=== PATIENT | female | born 1960 | race Caucasian/White ===

== ENCOUNTER 2016-11-14 15:06 | Inpatient (IN) | payer OTHER ==
[2016-11-14] VITALS (8 sets, daily range): BP systolic 92–146; BP diastolic 61–76
[~2016-11-14] VITALS: Ht 157.5 cm; Wt 75.5 kg
[2016-11-14 16:23] LABS: CALCIUM 8.9 mg/dL (8.5-10.1); CARBON DIOXIDE 38.4 mmol/L (21-32); CHLORIDE SERUM 101 mmol/L (98-107); CREATININE SERUM 0.8 mg/dL (0.6-1.0); GFR1 > 60 mL/min; GLUCOSE SERUM 169 mg/dL (74-106); POTASSIUM SERUM 5.3 mmol/L (3.5-5.1); SODIUM SERUM 141 mmol/L (136-145)
[2016-11-14 16:29] LABS: ALBUMIN 3.9 g/dL (3.4-5.0); ALKALINE PHOSPHATASE 64 U/L (46-116); ALT/SGPT 21 U/L (14-59); AST/SGOT 19 U/L (15-37); BILIRUBIN TOTAL 0.55 mg/dL (0.20-1.00); MAGNESIUM 2.1 mg/dL (1.8-2.4); TOTAL PROTEIN, SERUM 6.9 g/dL (6.4-8.2)
[2016-11-14 16:32] LABS: PLATELET COUNT 145 x10^3mcL (130-400)
[2016-11-14 16:33] LABS: BASOPHIL % 0 % (0-2); RED CELL DISTRIBUTION WIDTH 22.8 % (11.5-14.5)
[2016-11-14 16:35] LABS: rbc morphology (normal/abnorm) ABNORMAL (NORMAL)
[2016-11-14 16:53] LABS: microscopic required? NO
[2016-11-14 17:10] LABS: UA SPECIFIC GRAVITY 1.025 (1.005-1.035); urine erythrocyte NEGATIVE (NEGATIVE)
[2016-11-14 17:18] LABS: AMPHETAMINE QUAL UR NONE DETECTED (NEG <=1000)
[2016-11-14] MEDS ORDERED: VIAGRA50 MG PO (17:59)
[2016-11-14] MEDS ORDERED: CARVEDILOL6.25 M1 PO (17:59)
[2016-11-14] MEDS ORDERED: SIMVASTATIN40 M1 PO (17:59)
[2016-11-14] MEDS ORDERED: METFORMIN HCL1000 MG PO (18:00)
[2016-11-14] MEDS ORDERED: CITALOPRAM HYDR20 M1 PO (18:00)
[2016-11-14] MEDS ORDERED: ZESTRIL40 MG PO (18:00)
[2016-11-14] MEDS ORDERED: LASIX40 MG PO (18:02)
[2016-11-14] MEDS ORDERED: GLIPIZIDE10 M2 PO (18:02)
[2016-11-14] MEDS ORDERED: TRAMADOL HCL50 MG PO (18:02)
[2016-11-14 18:27] LABS: CHOLESTEROL/HDL RATIO 3.3; PHOSPHOROUS 6.4 mg/dL (2.5-4.9)
[2016-11-14 18:35] LABS: T3 TOTAL 1.04 ng/mL
[2016-11-14 18:36] LABS: FREE T4 1.02 ng/dL (0.76-1.46); FREE THYROXINE INDEX 3.1 ug/dL (1.4-4.5); T4(THYROXINE) 8.9 ug/dL (4.7-13.3)
[2016-11-15] VITALS (17 sets, daily range): BP systolic 105–181; BP diastolic 54–98
[2016-11-15 05:06] LABS: BASOPHIL % 0.3 % (0-2)
[2016-11-15 05:17] LABS: CALCIUM 8.7 mg/dL (8.5-10.1); CARBON DIOXIDE 35.7 mmol/L (21-32); CHLORIDE SERUM 104 mmol/L (98-107); CREATININE SERUM 0.7 mg/dL (0.6-1.0); GFR1 > 60 mL/min; MAGNESIUM 1.7 mg/dL (1.8-2.4); PHOSPHOROUS 2.8 mg/dL (2.5-4.9); POTASSIUM SERUM 3.8 mmol/L (3.5-5.1); SODIUM SERUM 144 mmol/L (136-145)
[2016-11-15 05:19] LABS: GLUCOSE SERUM 52 mg/dL (74-106)
[2016-11-15 05:50] LABS: PLATELET COUNT 127 x10^3mcL (130-400); RED CELL DISTRIBUTION WIDTH 22.2 % (11.5-14.5)
[2016-11-15 05:57] LABS: rbc morphology (normal/abnorm) ABNORMAL (NORMAL)
[2016-11-16] VITALS (17 sets, daily range): BP systolic 100–164; BP diastolic 51–80
[2016-11-16 06:24] LABS: CALCIUM 8.8 mg/dL (8.5-10.1); CARBON DIOXIDE 32.4 mmol/L (21-32); CHLORIDE SERUM 102 mmol/L (98-107); CREATININE SERUM 0.7 mg/dL (0.6-1.0); GFR1 > 60 mL/min; GLUCOSE SERUM 236 mg/dL (74-106); MAGNESIUM 2.1 mg/dL (1.8-2.4); PHOSPHOROUS 4.4 mg/dL (2.5-4.9); POTASSIUM SERUM 3.4 mmol/L (3.5-5.1); SODIUM SERUM 140 mmol/L (136-145)
[2016-11-16 06:36] LABS: BASOPHIL % 0 % (0-2); PLATELET COUNT 109 x10^3mcL (130-400); RED CELL DISTRIBUTION WIDTH 22.5 % (11.5-14.5)
[2016-11-16 10:40] LABS: rbc morphology (normal/abnorm) ABNORMAL (NORMAL)
[2016-11-16 10:41] LABS: ovalocyte/elliptocyte 1+; target cell (codocyte) 1+
[2016-11-17] VITALS (18 sets, daily range): BP systolic 100–177; BP diastolic 51–97
[2016-11-17 05:35] LABS: BASOPHIL % 0.8 % (0-2)
[2016-11-17 05:39] LABS: PLATELET COUNT 109 x10^3mcL (130-400); RED CELL DISTRIBUTION WIDTH 23.1 % (11.5-14.5)
[2016-11-17 05:42] LABS: CALCIUM 8.7 mg/dL (8.5-10.1); CARBON DIOXIDE 31.2 mmol/L (21-32); CHLORIDE SERUM 97 mmol/L (98-107); CREATININE SERUM 0.7 mg/dL (0.6-1.0); GFR1 > 60 mL/min; GLUCOSE SERUM 186 mg/dL (74-106); MAGNESIUM 2.2 mg/dL (1.8-2.4); PHOSPHOROUS 4.2 mg/dL (2.5-4.9); SODIUM SERUM 137 mmol/L (136-145)
[2016-11-18] VITALS (18 sets, daily range): BP systolic 94–182; BP diastolic 47–94
[2016-11-18 05:44] LABS: PLATELET COUNT 145 x10^3mcL (130-400)
[2016-11-18 05:52] LABS: RED CELL DISTRIBUTION WIDTH 22.3 % (11.5-14.5)
[2016-11-18 05:56] LABS: CALCIUM 8.5 mg/dL (8.5-10.1); CARBON DIOXIDE 32.6 mmol/L (21-32); CHLORIDE SERUM 103 mmol/L (98-107); CREATININE SERUM 0.6 mg/dL (0.6-1.0); GFR1 > 60 mL/min; GLUCOSE SERUM 129 mg/dL (74-106); MAGNESIUM 1.9 mg/dL (1.8-2.4); PHOSPHOROUS 4.9 mg/dL (2.5-4.9); SODIUM SERUM 140 mmol/L (136-145)
[2016-11-19] VITALS (18 sets, daily range): BP systolic 96–169; BP diastolic 51–95
[2016-11-19 04:55] LABS: BASOPHIL % 1.5 % (0-2)
[2016-11-19 05:06] LABS: CALCIUM 8.8 mg/dL (8.5-10.1); CARBON DIOXIDE 35.6 mmol/L (21-32); CHLORIDE SERUM 102 mmol/L (98-107); CREATININE SERUM 0.6 mg/dL (0.6-1.0); GFR1 > 60 mL/min; GLUCOSE SERUM 156 mg/dL (74-106); MAGNESIUM 1.7 mg/dL (1.8-2.4); PHOSPHOROUS 2.9 mg/dL (2.5-4.9); PLATELET COUNT 115 x10^3mcL (130-400); POTASSIUM SERUM 3.5 mmol/L (3.5-5.1); SODIUM SERUM 142 mmol/L (136-145)
[2016-11-19 05:22] LABS: ovalocyte/elliptocyte 1+; rbc morphology (normal/abnorm) ABNORMAL (NORMAL)
[2016-11-20] VITALS (17 sets, daily range): BP systolic 102–144; BP diastolic 54–75
[2016-11-20 06:06] LABS: CALCIUM 8.6 mg/dL (8.5-10.1); CARBON DIOXIDE 33.8 mmol/L (21-32); CHLORIDE SERUM 102 mmol/L (98-107); CREATININE SERUM 0.6 mg/dL (0.6-1.0); GFR1 > 60 mL/min; GLUCOSE SERUM 178 mg/dL (74-106); MAGNESIUM 1.8 mg/dL (1.8-2.4); PHOSPHOROUS 3.7 mg/dL (2.5-4.9); POTASSIUM SERUM 3.1 mmol/L (3.5-5.1); SODIUM SERUM 140 mmol/L (136-145)
[2016-11-20 06:07] LABS: BASOPHIL % 0 % (0-2); PLATELET COUNT 117 x10^3mcL (130-400); RED CELL DISTRIBUTION WIDTH 23.4 % (11.5-14.5)
[2016-11-21] VITALS (19 sets, daily range): BP systolic 90–151; BP diastolic 47–75
[2016-11-21 04:52] LABS: BASOPHIL % 0.1 % (0-2); PLATELET COUNT 156 x10^3mcL (130-400)
[2016-11-21 05:00] LABS: RED CELL DISTRIBUTION WIDTH 23.2 % (11.5-14.5)
[2016-11-21 05:18] LABS: CALCIUM 8.8 mg/dL (8.5-10.1); CARBON DIOXIDE 31.8 mmol/L (21-32); CHLORIDE SERUM 102 mmol/L (98-107); CREATININE SERUM 0.6 mg/dL (0.6-1.0); GFR1 > 60 mL/min; GLUCOSE SERUM 161 mg/dL (74-106); MAGNESIUM 1.9 mg/dL (1.8-2.4); PHOSPHOROUS 3.9 mg/dL (2.5-4.9); POTASSIUM SERUM 3.5 mmol/L (3.5-5.1); SODIUM SERUM 138 mmol/L (136-145)
[2016-11-21 05:20] LABS: rbc morphology (normal/abnorm) ABNORMAL (NORMAL)
[2016-11-21 05:21] LABS: ovalocyte/elliptocyte 1+
[2016-11-22] VITALS (19 sets, daily range): BP systolic 82–151; BP diastolic 55–84
[2016-11-22 05:42] LABS: BASOPHIL % 0.3 % (0-2); PLATELET COUNT 172 x10^3mcL (130-400)
[2016-11-22 05:51] LABS: CALCIUM 9.1 mg/dL (8.5-10.1); CARBON DIOXIDE 32.7 mmol/L (21-32); CHLORIDE SERUM 103 mmol/L (98-107); CREATININE SERUM 0.6 mg/dL (0.6-1.0); GFR1 > 60 mL/min; GLUCOSE SERUM 190 mg/dL (74-106); MAGNESIUM 1.9 mg/dL (1.8-2.4); PHOSPHOROUS 3.7 mg/dL (2.5-4.9); POTASSIUM SERUM 3.5 mmol/L (3.5-5.1); SODIUM SERUM 141 mmol/L (136-145)
[2016-11-23] VITALS (14 sets, daily range): BP systolic 93–168; BP diastolic 42–84
[2016-11-23 05:55] LABS: BASOPHIL % 0.9 % (0-2); PLATELET COUNT 181 x10^3mcL (130-400)
[2016-11-23 05:57] LABS: CALCIUM 9.1 mg/dL (8.5-10.1); CARBON DIOXIDE 29.3 mmol/L (21-32); CHLORIDE SERUM 105 mmol/L (98-107); CREATININE SERUM 0.5 mg/dL (0.6-1.0); GFR1 > 60 mL/min; GLUCOSE SERUM 151 mg/dL (74-106); MAGNESIUM 1.8 mg/dL (1.8-2.4); PHOSPHOROUS 3.7 mg/dL (2.5-4.9); POTASSIUM SERUM 3.2 mmol/L (3.5-5.1); SODIUM SERUM 143 mmol/L (136-145)
[2016-11-24] VITALS (16 sets, daily range): BP systolic 121–161; BP diastolic 69–79
[2016-11-24 05:22] LABS: CALCIUM 9.4 mg/dL (8.5-10.1); CARBON DIOXIDE 28.5 mmol/L (21-32); CHLORIDE SERUM 106 mmol/L (98-107); CREATININE SERUM 0.6 mg/dL (0.6-1.0); GFR1 > 60 mL/min; GLUCOSE SERUM 168 mg/dL (74-106); MAGNESIUM 1.7 mg/dL (1.8-2.4); PHOSPHOROUS 4.1 mg/dL (2.5-4.9); POTASSIUM SERUM 3.3 mmol/L (3.5-5.1); SODIUM SERUM 142 mmol/L (136-145)
[2016-11-24 05:31] LABS: BASOPHIL % 0.7 % (0-2); PLATELET COUNT 197 x10^3mcL (130-400); RED CELL DISTRIBUTION WIDTH 22.9 % (11.5-14.5)
[2016-11-25] VITALS (16 sets, daily range): BP systolic 108–176; BP diastolic 59–99
[2016-11-25 05:31] LABS: BASOPHIL % 1.8 % (0-2); PLATELET COUNT 195 x10^3mcL (130-400); RED CELL DISTRIBUTION WIDTH 23.6 % (11.5-14.5)
[2016-11-25 05:43] LABS: CALCIUM 9.7 mg/dL (8.5-10.1); CHLORIDE SERUM 106 mmol/L (98-107); CREATININE SERUM 0.5 mg/dL (0.6-1.0); GFR1 > 60 mL/min; GLUCOSE SERUM 180 mg/dL (74-106); MAGNESIUM 1.5 mg/dL (1.8-2.4); PHOSPHOROUS 4.3 mg/dL (2.5-4.9); POTASSIUM SERUM 3.3 mmol/L (3.5-5.1); SODIUM SERUM 144 mmol/L (136-145)
[2016-11-26] VITALS (13 sets, daily range): BP systolic 123–178; BP diastolic 63–99
[2016-11-26 05:34] LABS: BASOPHIL % 1.2 % (0-2); PLATELET COUNT 193 x10^3mcL (130-400)
[2016-11-26 05:39] LABS: RED CELL DISTRIBUTION WIDTH 23.4 % (11.5-14.5)
[2016-11-26 05:47] LABS: CALCIUM 9.6 mg/dL (8.5-10.1); CARBON DIOXIDE 25.3 mmol/L (21-32); CHLORIDE SERUM 106 mmol/L (98-107); CREATININE SERUM 0.6 mg/dL (0.6-1.0); GFR1 > 60 mL/min; GLUCOSE SERUM 126 mg/dL (74-106); MAGNESIUM 1.6 mg/dL (1.8-2.4); PHOSPHOROUS 3.8 mg/dL (2.5-4.9); SODIUM SERUM 143 mmol/L (136-145)
[2016-11-26 06:11] LABS: rbc morphology (normal/abnorm) ABNORMAL (NORMAL)
[2016-11-26 06:12] LABS: ovalocyte/elliptocyte 1+
[2016-11-27] VITALS (8 sets, daily range): BP systolic 122–151; BP diastolic 57–82; Ht 157.5 cm; Wt 75.5 kg
[2016-11-27 05:40] LABS: PLATELET COUNT 224 x10^3mcL (130-400)
[2016-11-27 05:43] LABS: BASOPHIL % 0 % (0-2); RED CELL DISTRIBUTION WIDTH 22.8 % (11.5-14.5)
[2016-11-27 05:50] LABS: CALCIUM 9.9 mg/dL (8.5-10.1); CARBON DIOXIDE 29.8 mmol/L (21-32); CHLORIDE SERUM 106 mmol/L (98-107); CREATININE SERUM 0.6 mg/dL (0.6-1.0); GFR1 > 60 mL/min; GLUCOSE SERUM 131 mg/dL (74-106); MAGNESIUM 1.9 mg/dL (1.8-2.4); PHOSPHOROUS 5.2 mg/dL (2.5-4.9); POTASSIUM SERUM 3.7 mmol/L (3.5-5.1); SODIUM SERUM 144 mmol/L (136-145)
[2016-11-28 06:08] VITALS: BP 119/65
[2016-11-28 06:37] LABS: BASOPHIL % 0.8 % (0-2); PLATELET COUNT 206 x10^3mcL (130-400)
[2016-11-28 07:20] LABS: CALCIUM 9.9 mg/dL (8.5-10.1); CARBON DIOXIDE 30.3 mmol/L (21-32); CHLORIDE SERUM 103 mmol/L (98-107); CREATININE SERUM 0.6 mg/dL (0.6-1.0); GFR1 > 60 mL/min; GLUCOSE SERUM 123 mg/dL (74-106); MAGNESIUM 1.6 mg/dL (1.8-2.4); PHOSPHOROUS 5.5 mg/dL (2.5-4.9); POTASSIUM SERUM 3.2 mmol/L (3.5-5.1); SODIUM SERUM 142 mmol/L (136-145)
[2016-11-28 07:49] LABS: RED CELL DISTRIBUTION WIDTH 23.5 % (11.5-14.5)
[2016-11-28 09:33] VITALS: BP 116/44
[2016-11-28 18:17] VITALS: BP 109/58
[2016-11-28 21:41] VITALS: BP 125/55
[2016-11-29 05:51] VITALS: BP 107/54
[2016-11-29 07:27] LABS: CALCIUM 9.9 mg/dL (8.5-10.1); CARBON DIOXIDE 27.5 mmol/L (21-32); CHLORIDE SERUM 101 mmol/L (98-107); CREATININE SERUM 0.8 mg/dL (0.6-1.0); GFR1 > 60 mL/min; GLUCOSE SERUM 154 mg/dL (74-106); MAGNESIUM 1.4 mg/dL (1.8-2.4); POTASSIUM SERUM 3.5 mmol/L (3.5-5.1); SODIUM SERUM 140 mmol/L (136-145)
[2016-11-29 10:00] VITALS: BP 113/59
[2016-11-29 14:00] VITALS: BP 137/60
[2016-11-29 14:36] VITALS: BP 113/59
[2016-11-29 16:22] VITALS: BP 113/59
[2016-11-29] MEDS ORDERED: ASPIR 8181 MG PO (17:51)
[2016-11-29] MEDS ORDERED: REGLAN10 M1 PO (17:52)
[2016-11-29] MEDS ORDERED: PULMICORT0.5 MG/2 M IH (17:54)
[2016-11-29] MEDS ORDERED: IPRATROPIUM BROM3 M2 HHN (17:55)
[2016-11-29] MEDS ORDERED: PANTOPRAZOLE SO40 M1 PO (17:56)
[2016-11-29] MEDS ORDERED: ARTOS OD (17:56)
[2016-11-29] MEDS ORDERED: HUMULIN R100 U/1 M1 SC (17:57)
[2016-11-29 18:40] VITALS: BP 109/62
== END 2016-11-29 19:50 | DRG 207 ==
LOC: ED 15:06 → DU 17:15 → IC 17:15 → DU 11-27 18:12 → IC 11-27 18:19 → DU 11-27 18:21
PROVIDERS: Emergency Medicine; Family Medicine; ADMIT Family Medicine
PROC: 5A1955Z Respiratory Ventilation, Greater than 96 Consecutive Hours (ICD-10-PCS; principal; 2016-11-14)
PROC: 0BH17EZ Insertion of Endotracheal Airway into Trachea, Via Natural or Artificial Opening (ICD-10-PCS; 2016-11-14)
PROC: 05HN33Z Insertion of Infusion Device into Left Internal Jugular Vein, Percutaneous Approach (ICD-10-PCS; 2016-11-14)
PROC: B544ZZA Ultrasonography of Left Jugular Veins, Guidance (ICD-10-PCS; 2016-11-14)
PROC: 0B21XEZ Change Endotracheal Airway in Trachea, External Approach (ICD-10-PCS; 2016-11-18)
DX: J96.00 Acute respiratory failure, unspecified whether with hypoxia or hypercapnia (principal); J69.0 Pneumonitis due to inhalation of food and vomit; K72.01 Acute and subacute hepatic failure with coma; I50.43 Acute on chronic combined systolic (congestive) and diastolic (congestive) heart failure; N17.0 Acute kidney failure with tubular necrosis; I63.9 Cerebral infarction, unspecified; E43 Unspecified severe protein-calorie malnutrition; D68.69 Other thrombophilia; K56.7 Ileus, unspecified; E66.2 Morbid (severe) obesity with alveolar hypoventilation; Z68.41 Body mass index [BMI] 40.0-44.9, adult; I27.2 Other secondary pulmonary hypertension; E11.65 Type 2 diabetes mellitus with hyperglycemia; E11.51 Type 2 diabetes mellitus with diabetic peripheral angiopathy without gangrene; E11.59 Type 2 diabetes mellitus with other circulatory complications; E83.42 Hypomagnesemia; E83.39 Other disorders of phosphorus metabolism; E87.5 Hyperkalemia; E78.5 Hyperlipidemia, unspecified; Z86.73 Personal history of transient ischemic attack (TIA), and cerebral infarction without residual deficits; Z91.19 Patient's noncompliance with other medical treatment and regimen
CPT/HCPCS: 36556; 36600; 80307; 82962; 83880; 84439; 85378; 92610; 97110-GP; 97116-GP; 97530-GP; A4628; B4164; C9113; G0480; J0330; J0696; J1100; J1170; J1642; J1815; J1940; J2060; J2150; J2250; J2405; J2543; J2704; J2765; J3010; J3475; J3480; J3490; J7030; J7040; J7620; J7626; Q0092